=== PATIENT | female | born 2005 | race Hispanic/Latino ===

== ENCOUNTER 2024-06-25 02:05 | Emergency (ER) | payer OTHER ==
[~2024-06-25] VITALS: Ht 154.9 cm; Wt 49.4 kg
[2024-06-25 02:15] VITALS: PULSE 64; RESP 16; TEMP 98.2; O2SAT 100
[2024-06-25 03:18] LABS: BILIRUBIN,URINE 1+ (NEGATIVE); CLARITY,URINE CLOUDY (CLEAR); COLOR,URINE AMBER (YELLOW); GLUCOSE, URINE NEGATIVE (NEGATIVE); KETONES,URINE NEGATIVE (NEGATIVE); LEUKOCYTE ESTERASE ,URINE 2+ (NEGATIVE); NITRITE,URINE POSITIVE (NEGATIVE); PH,URINE 6 (5 - 7); PROTEIN,URINE DIPSTICK >=300 (NEGATIVE); URINE UROBILINOGEN 0.2 mg/dL (0.2 - 1)
[2024-06-25 03:19] LABS: PREGNANCY TEST, URINE NEGATIVE (NEGATIVE)
[2024-06-25 03:21] LABS: RBC,URINE >50 /HPF (0-5)
[2024-06-25 03:22] LABS: BACTERIA,URINE MANY /HPF; EPITHELIAL CELLS,URINE FEW /LPF; WBC,URINE (MAN) >50 /HPF (0-5)
[2024-06-25] MEDS: KETOROLAC TROMETHAMINE 60 MG/2 ML VIAL IM STA (03:49)
[2024-06-25] MEDS ORDERED: KETOROLAC TROME10 MG PO (03:53)
[2024-06-25] MEDS ORDERED: BACTRIM 400-801 EACH PO (03:54)
== END 2024-06-25 04:08 | disposition home or self-care (01) ==
LOC: ER 02:08
DX: R30.0 Dysuria (principal); R10.32 Left lower quadrant pain; N39.0 Urinary tract infection, site not specified; N83.202 Unspecified ovarian cyst, left side; R11.0 Nausea; E03.9 Hypothyroidism, unspecified
CPT/HCPCS: 76830; 81001; 81025; 93976; 99283; J1885